=== PATIENT | male | born 1990 | race Two or more races ===

== ENCOUNTER 2019-03-06 20:45 | Inpatient (IN) | payer MEDICAID ==
[~2019-03-06] VITALS: Ht 177.8 cm; Wt 100.2 kg
--- NOTE | 2019-03-06 21:08 | NUR ---
DR. HARRIS AT BEDSIDE FOR [facility]
[2019-03-06] MEDS ORDERED: CLINDAMYCIN 900MG/D5W 100ML IVPB **ER PYXIS ONLY IJ ONE (21:29)
[2019-03-06 21:47] LABS: BASOPHILS % (AUTO) 0.6 % (0.0-2.0); EOSINOPHILS # (AUTO) 0.3 K/uL (0.0-0.7); EOSINOPHILS % (AUTO) 3.4 % (0.0-7.0); HEMATOCRIT 46.9 % (36.7-47.1); HEMOGLOBIN 15.9 g/dL (12.5-16.3); LYMPHOCYTES # (AUTO) 2.3 K/uL (20.0-40.0); LYMPHOCYTES % (AUTO) 27.7 % (20.5-51.5); MEAN CORPUSCULAR HEMOGLOBIN 30.3 uug (23.8-33.4); MEAN CORPUSCULAR HGB CONC 34 g/dL (32.5-36.3); MEAN CORPUSCULAR VOLUME 89.4 fL (73.0-96.2); MONOCYTES # (AUTO) 0.7 K/uL (2.0-10.0); NEUTROPHILS # (AUTO) 5.1 K/uL (1.8-8.9); NEUTROPHILS % (AUTO) 60.3 % (38.5-71.5); PLATELET COUNT (AUTO) 267 K/uL (152-348); RED BLOOD CELL COUNT(AUTO) 5.24 MIL/uL (4.06-5.63); WHITE BLOOD COUNT (AUTO) 8.5 K/uL (3.6-10.2)
[2019-03-06 21:54] LABS: CREATININE 1.2 mg/dL (0.6-1.3); POTASSIUM 3.8 mmol/L (3.5-5.1)
[2019-03-06 22:00] LABS: BILIRUBIN,TOTAL 0.5 mg/dL (0.2-1.0); TOTAL PROTEIN, SERUM 7.5 g/dL (6.4-8.2)
--- NOTE | 2019-03-06 22:00 | NUR ---
Dr. Grier spoke with Dr. Chavez for panel call. pt accepted for admission to [facility]. Dx: cellulitis
[2019-03-06] MEDS ORDERED: IV NORMAL SALINE 250 ML IV ONE (22:16)
[2019-03-06] MEDS ORDERED: IOHEXOL 300MG/ML 100 ML INFUS..BTL ONE (22:16)
[2019-03-06] MEDS ORDERED: SWABABLE VALVE TRANSFER SET EA MC ONE (22:16)
--- NOTE | 2019-03-06 22:19 | NUR ---
Report Given to Hari MODI at [facility]
--- NOTE | 2019-03-06 22:45 | NUR ---
pt taken to [facility] via [facility]. all belongings with pt.
[2019-03-06 22:55] VITALS: BP 137/77
--- NOTE | 2019-03-06 23:30 | NUR ---
Pt transported from ER via gurney to Room 307 at 2255. Admission process started at this time. All belongings accounted for, initial physical assessment done, patient is awake, alert and fully oriented. No other skin issues other than facial cellulitis on left cheek. Will document full assessment accordingly. No pain at this time. Able to walk to bathroom. Continent to bowel/bladder. Teaching regarding cellulitis done. Verbalized understanding. Dr Chavez with new telephone orders received from Charge Nurse, carried out by primary nurse. With order of clindamycin 600mg every 8 hours, last dose given at ER at 2135, will start next dose at 03/07 0535, requested supply form warehouse pricing and inventory clerk. Needs attended at this time, [facility]
[2019-03-06] MEDS ORDERED: CLINDAMYCIN PHOSPHATE 600 MG/4 ML VIAL ONE (23:40)
[2019-03-07] MEDS ORDERED: HYDROCODONE/APAP 5-325MG TABLET PO PRN (03:15)
[2019-03-07] MEDS ORDERED: ONDANSETRON 4 MG/2 ML VIAL IV PRN (03:15)
[2019-03-07 05:06] VITALS: BP 128/75
[2019-03-07] MEDS: CLINDAMYCIN PHOSPHATE IV 600 MG in IV DEXTROSE 5% 100 ML IV SCH ×3 (05:06→22:30)
[2019-03-07] MEDS ORDERED: CLINDAMYCIN PHOSPHATE IV 600 MG in IV DEXTROSE 5% 100 ML IV SCH (05:30)
[2019-03-07] MEDS: FAMOTIDINE 20 MG TABLET PO SCH (08:13)
[2019-03-07 11:00] VITALS: BP 103/57
--- NOTE | 2019-03-07 13:45 | NUR ---
WOUND CARE CONSULT: KUSH DONAHUEN Addendum: 03/07/19 at 1346 by SHAUN GREER RN Amended: Links added.
--- NOTE | 2019-03-07 13:46 | NUR ---
WOUND CARE CONSULT: PT PRESENTS WITH PUSTULE TO RT CHEEK WITH SURROUNDING ERYTHEMA, PRESENT ON ADMISSION. RECOMMENDATIONS MADE FOR WOUND CARE. DISCUSSED WITH NURSING STAFF. PT IS AMBULATORY AND CONTINENT. WILL SEE PRN. I.D. TO FOLLOW PT PER NURSING STAFF. Addendum: 03/07/19 at 1347 by SHAUN GREER RN Amended: Links added.
[2019-03-07] MEDS: NEOMY/BACITRAC/POLYMI OINT 28.35 GM TUBE TOP SCH (16:03)
[2019-03-07 16:12] VITALS: BP 139/74
[2019-03-07] MEDS: ACETAMINOPHEN 325 MG TABLET PO PRN (16:12)
--- NOTE | 2019-03-07 17:29 | NUR ---
Patient alert and oriented, ambulatory. No distress noted or complaints of pain. Continues on IV antibiotics for cellulitis. Erythema on right side of face, swelling decreased. Tender to palpation. All needs met, stable. Wound consult placed today, antibiotic ointment ordered, wound care per orders. Fever of 101.5 tylenol PRN given and cooling measures initiated, resolved.
--- NOTE | 2019-03-07 19:27 | NUR ---
Received patient awake and alert in bed, no signs of acute distress noted. Swelling noted to the right side of the face, patient is on antibiotics. No complaints of pain or SOB at this time. Patient is ambulatory. Safety measures initiated. Bed is low and locked, call light within reach. Will continue to monitor.
[2019-03-07 19:40] VITALS: BP 134/78
[2019-03-08] MEDS: ACETAMINOPHEN 325 MG TABLET PO PRN ×2 (04:05→20:34)
[2019-03-08 04:15] VITALS: BP 132/77
[2019-03-08] MEDS: CLINDAMYCIN PHOSPHATE IV 600 MG in IV DEXTROSE 5% 100 ML IV SCH (05:53)
--- NOTE | 2019-03-08 06:00 | NUR ---
Patient noted with temperature of 101.3, started cooling measures and administer Tylenol. Temperature is currently 98.4 Patient slept well throughout shift. no distress noted. no complaints of pain or SOB. Antibiotics given as ordered and tolerated well. Will endorse to next shift.
[2019-03-08 06:59] LABS: WHITE BLOOD COUNT (AUTO) 6.5 K/uL (3.6-10.2)
[2019-03-08 07:00] LABS: EOSINOPHILS % (AUTO) 0.7 % (0.0-7.0); HEMATOCRIT 46.2 % (36.7-47.1); HEMOGLOBIN 15.7 g/dL (12.5-16.3); LYMPHOCYTES % (AUTO) 15.9 % (20.5-51.5); MEAN CORPUSCULAR HEMOGLOBIN 30.9 uug (23.8-33.4); MEAN CORPUSCULAR HGB CONC 34 g/dL (32.5-36.3); MEAN CORPUSCULAR VOLUME 90.9 fL (73.0-96.2); MONOCYTES % (AUTO) 10.9 % (0.0-11.0); NEUTROPHILS % (AUTO) 72.1 % (38.5-71.5); PLATELET COUNT (AUTO) 223 K/uL (152-348); RED BLOOD CELL COUNT(AUTO) 5.08 MIL/uL (4.06-5.63)
[2019-03-08 07:01] LABS: BASOPHILS % (AUTO) 0.4 % (0.0-2.0); MONOCYTES # (AUTO) 0.7 K/uL (2.0-10.0); NEUTROPHILS # (AUTO) 4.7 K/uL (1.8-8.9)
--- NOTE | 2019-03-08 07:20 | NUR ---
RECEIVED PATIENT AWQAKE ALERT AND ORIENTED DENIES PAIN OR DISCOMFORTS AT THIS TIME HE IS AFEBRILE AT THIS TIME RIGHT SIDE OF FACE WITH CELLULITIS REMAIN INTACT WITH NO DRAINGE WITH TX ORDERED REMAIN ON IVF AND IV ATB WITH NO ADVERSE OR ALLERGIC REACTIONS AT THIS TIME CALL LIGHTS AND PERSONAL BELONGINGS ARE WITHIN EASY REACH WILL CONTINUE TO OBSERVE AND PROVIDE COMFORT.
[2019-03-08 07:27] LABS: CREATININE 1.1 mg/dL (0.6-1.3)
[2019-03-08 07:35] LABS: PHOSPHOROUS 3.6 mg/dL (2.5-4.9)
[2019-03-08] MEDS: NEOMY/BACITRAC/POLYMI OINT 28.35 GM TUBE TOP SCH (09:06)
[2019-03-08] MEDS: FAMOTIDINE 20 MG TABLET PO SCH (09:06)
--- NOTE | 2019-03-08 09:23 | NUR ---
PATIENT SEEN AND EXAMINED BY JAMES SANCHEZ AWARE THAT PATIENT HAD FEVER LAST NITE WITH NEW ORDERS AND NOTED.
[2019-03-08 11:24] VITALS: BP 122/68
--- NOTE | 2019-03-08 12:00 | NUR ---
PATIENT SEEN AND EXAMINED BY SHIELA PIZARRO ENERGY SCHEDULER WITH ORDERS SHE COLLECTED SPECIMEN FOR C/S AND SENT TO THE LAB FOR ANALYSIS PATIENT IS FOR CT SCAN OF THE FACE WITH CONTRAST PATIENT AWARE AND CONSCENT OBTAINED
[2019-03-08] MEDS ORDERED: SWABABLE VALVE TRANSFER SET EA MC ONE (12:15)
[2019-03-08] MEDS ORDERED: IV NORMAL SALINE 250 ML IV ONE (12:15)
[2019-03-08] MEDS ORDERED: IOHEXOL 300MG/ML 100 ML INFUS..BTL ONE (12:15)
--- NOTE | 2019-03-08 13:43 | NUR ---
CLINICAL PHARMACY NOTE: VANCOMYCIN PHARMACY TO DOSE Subjective: To start vancomycin in this 28 y/o male for indication of cellulitis of cheek Objective: BUN/SCr 12/1.1 wbc 6.5 temp 101.3 Assessment/Plan As renal function appears stable, will start regimen of vancomycin 1750mg q12hr for estimated trough of 15, first dose today at 1500. Will check trough before 4th scheduled dose (not ordered yet). Will also follow renal function and adjust if were to become unstable. Will follow
[2019-03-08] MEDS: PIPERACILLIN SODIUM/TAZOBACTAM 3.375 G in IV DEXTROSE 5% 50 ML IV SCH ×2 (13:47→22:23)
[2019-03-08] MEDS: MUPIROCIN 2% OINT 22 GM TUBE TP SCH ×2 (15:20→20:35)
[2019-03-08] MEDS: VANCOMYCIN IV 1,750 MG in IV DEXTROSE 5% 500 ML IV SCH (15:20)
[2019-03-08 16:00] VITALS: BP 122/67
[2019-03-08 19:55] VITALS: BP 139/86
--- NOTE | 2019-03-08 22:50 | NUR ---
1915 Received bedside report from AM nurse regarding patient. Pt is awake and fully oriented x 4. Able to verbalize needs, and denies pain or discomfort at this time. Still noted with redness and slight swelling on R cheek. Warm to touch, with elevated temperature throughout the day. Iv site is intact. Full assessment done, will document accordingly. 1999 VS checked by MARKETING EFFECTIVENESS MANAGER, Temp: 100.4 2030 Tylenol 650 mg given as ordered. Wound care also done as ordered, and tolerated well. 2199 Full assessment documented accordingly. No reactions noted from ATB given. 2249 Rechecked temperature at: 99.3. Cooling measures provided. Kept patient comfortable on light sheets. Attended all needs at this time. Will continue to monitor and follow plan of care.
[2019-03-09] MEDS: VANCOMYCIN IV 1,750 MG in IV DEXTROSE 5% 500 ML IV SCH ×2 (03:19→14:39)
[2019-03-09 05:04] VITALS: BP 119/70
[2019-03-09] MEDS: PIPERACILLIN SODIUM/TAZOBACTAM 3.375 G in IV DEXTROSE 5% 50 ML IV SCH ×3 (06:05→21:21)
[2019-03-09 06:40] LABS: CREATININE 1.2 mg/dL (0.6-1.3); POTASSIUM 3.7 mmol/L (3.5-5.1)
[2019-03-09 07:28] LABS: HEMATOCRIT 46.8 % (40-50); HEMOGLOBIN 15.6 G/DL (14.0-18.0); LYMPHOCYTES % (AUTO) 10.4 % (20.5-51.5); MEAN CORPUSCULAR HEMOGLOBIN 30.6 UUG (27.0-31.0); MEAN CORPUSCULAR HGB CONC 33 g/dL (32.0-37.0); MEAN CORPUSCULAR VOLUME 91.6 FL (82.0-92.0); MONOCYTES % (AUTO) 8.2 % (0.0-11.0); NEUTROPHILS % (AUTO) 79.4 % (38.5-71.5); PLATELET COUNT (AUTO) 200 K/UL (150-450); RED BLOOD CELL COUNT(AUTO) 5.11 MIL/UL (4.7-6.1); WHITE BLOOD COUNT (AUTO) 4.9 K/UL (4.0-11.2)
--- NOTE | 2019-03-09 07:28 | NUR ---
RECEIVED PATIENT IN BED AWAKE ALERT AND ORIENTED DENIES PAIN OR DISCOMFORTS AT THIS TIME REMAIN ON ATB ORDERED WITH NO ADVERSE OR ALLERGIC REACTIONS AT THIS TIME.RIGHT CHEEK CELLULITIS WITH REDNESS AND SWELLING WITH TREATMENT IN PROGRESS ORDERED CALL LIGHTS AND PERSONAL BELONGINGS ARE WITHIN EASY REACH WILL CONTINUE TO OBSERVE.
[2019-03-09 07:29] LABS: BASOPHILS % (AUTO) 0.3 % (0.0-2.0); EOSINOPHILS # (AUTO) 0.1 K/uL (0.0-0.7); EOSINOPHILS % (AUTO) 1.7 % (0.0-7.0); LYMPHOCYTES # (AUTO) 0.5 K/UL (0.8-4.8); MONOCYTES # (AUTO) 0.4 K/UL (0.1-1.30); NEUTROPHILS # (AUTO) 3.9 K/UL (1.8-8.9)
--- NOTE | 2019-03-09 07:51 | NUR ---
CLINICAL PHARMACY NOTE: VANCOMYCIN PHARMACY TO DOSE Subjective: To continue vancomycin in this 28 y/o male for indication of cellulitis of cheek Objective: BUN/SCr 9/1.2 wbc 4.9 temp 99 Assessment/Plan Will continue same regimen of vancomycin 1750mg IVPB q12hr for estimated trough of 17, 3rd dose today at 1500. Will check trough before 4th scheduled dose (ordered for 03/10 at 0230-RN has been informed to hold 0300 am dose if vanco trough level above 20 mcg/ml). Pharmacy shall review the level in am & adjust the fields if needed. Will follow
[2019-03-09] MEDS: FAMOTIDINE 20 MG TABLET PO SCH (08:48)
[2019-03-09] MEDS: MUPIROCIN 2% OINT 22 GM TUBE TP SCH ×2 (08:49→21:30)
--- NOTE | 2019-03-09 11:00 | NUR ---
PATIENT SEEN AND EXAMINED BY SHIELA PIZARRO WIND TURBINE SERVICE TECHNICIAN AND JAMES WIND TURBINE SERVICE TECHNICIAN WITH NO NEW ORDERS AT THIS TIME.
[2019-03-09 12:06] VITALS: BP 125/74
--- NOTE | 2019-03-09 14:00 | NUR ---
REMAIN ON ATB ORDERED WITH NO ADVERSE OR ALLERGIC REACTIONS AT THIS TIME LEFT AC HEPLOCK REMAINS INTACT FLUIDS ENCOURAGED WILL CONTINUE TO OBSERVE.
[2019-03-09 16:03] VITALS: BP 126/75
--- NOTE | 2019-03-09 18:06 | NUR ---
PATIENT IS RESTING DENIES PAIN OR DISCOMFORTS AT THIS TIME CONTINUE TO TOLERATE IV ANTIBIOTICS WITH NO ADVERSE OR ALLERGIC REACTIONS AT THIS TIME RIGHT CHEEK CELLULITIS STILL WITH ERYTHEMA WITH NO DRAINAGE AT THIS TIME WILL CONTINUE TO OBSERVE.
--- NOTE | 2019-03-09 19:34 | NUR ---
Received patient awake and alert in bed with family at bedside. No signs of distress noted. No complaints of pain or SOB. Heplock on the left AC is intact and patent. Patient is ambulatory with a steady gait. Safety measures initiated. Bed is low and locked, call light within reach. Will continue to monitor.
[2019-03-09 19:57] VITALS: BP 127/75
[2019-03-10] MEDS: VANCOMYCIN IV 1,750 MG in IV DEXTROSE 5% 500 ML IV SCH ×3 (03:14→21:02)
[2019-03-10 04:24] VITALS: BP 118/68
[2019-03-10] MEDS: PIPERACILLIN SODIUM/TAZOBACTAM 3.375 G in IV DEXTROSE 5% 50 ML IV SCH ×3 (06:34→23:28)
--- NOTE | 2019-03-10 07:07 | NUR ---
Patient slept well, no distress noted. No fevers over night. Antibiotics given as ordered and tolerated well. Safety measures given. Will endorse to next shift.
--- NOTE | 2019-03-10 07:19 | NUR ---
CLINICAL PHARMACY NOTE: VANCOMYCIN PHARMACY TO DOSE Subjective: To continue vancomycin in this 28 y/o male for indication of cellulitis of cheek Objective: BUN/SCr /1.2 (03/09) wbc 4.9 (03/09) temp 98.6 Vanco trough level on 03/10 at 0230: 9.1 Assessment/Plan Since vanco trough level is 9.1 mcg/ml, will change dose to vancomycin 1750mg IVPB q9hr for estimated trough of 15.6. 2nd dose today at 1200. Will check trough before 4th scheduled dose (ordered for 03/11 at 0530-RN has been informed to hold 0600 am dose if vanco trough level above 20 mcg/ml). Pharmacy shall review the level in am & adjust the fields if needed. Will follow
[2019-03-10] MEDS: FAMOTIDINE 20 MG TABLET PO SCH (09:46)
[2019-03-10] MEDS: MUPIROCIN 2% OINT 22 GM TUBE TP SCH ×2 (09:46→21:07)
[2019-03-10 11:40] VITALS: BP 124/67
[2019-03-10 15:51] VITALS: BP 125/71
--- NOTE | 2019-03-10 19:40 | NUR ---
Received patient awake and alert in bed, no signs of distress noted. IV antibiotics running on the right hand, no s/s of infection or infiltration noted. No complaints of pain or SOB. Safety measures initiated. Bed is low and locked, call light within reach. Will continue to monitor.
[2019-03-10 20:01] VITALS: BP 136/94
[2019-03-10] MEDS: CULTURELLE CAPSULE PO SCH (21:02)
[2019-03-11 04:00] VITALS: BP 120/63
[2019-03-11] MEDS: PIPERACILLIN SODIUM/TAZOBACTAM 3.375 G in IV DEXTROSE 5% 50 ML IV SCH ×2 (05:46→14:11)
[2019-03-11] MEDS: VANCOMYCIN IV 1,750 MG in IV DEXTROSE 5% 500 ML IV SCH ×2 (06:51→15:47)
--- NOTE | 2019-03-11 08:00 | NUR ---
RECEIVED PT RESTING IN BED. PT ALERT AND ORIENTED X3. PT DENIES PAIN AT THIS TIME. NO SIGNS OF ACUTE DISTRESS OR SOB NOTED. PT HAS WOUND ON RIGHT SIDE OF FACE. ABX RUNNING. BED LOCKED AND IN LOW POSITION. WILL CONTINUE TO MONITOR FOR SAFETY AND COMFORT.
[2019-03-11] MEDS: MUPIROCIN 2% OINT 22 GM TUBE TP SCH ×2 (08:53→21:38)
[2019-03-11] MEDS: FAMOTIDINE 20 MG TABLET PO SCH (08:53)
[2019-03-11] MEDS: CULTURELLE CAPSULE PO SCH ×2 (08:53→21:38)
--- NOTE | 2019-03-11 10:56 | NUR ---
CLINICAL PHARMACY NOTE: VANCOMYCIN PHARMACY TO DOSE Subjective: To continue vancomycin in this 28 y/o male for indication of cellulitis of cheek Objective: BUN/SCr 9/1.2 (03/09) wbc 4.9 (03/09) temp 97.7 Vanco trough level on 03/10 at 0230: 9.1 Vanco trough level on 03/11 at 0500:18.8(originally ordered at 0530 but drawn 30 min earlier) Assessment/Plan Since vanco trough level is within the range, will continue same dose(1750mg IV q9hrs)for now. Will monitor renal function and adjust the dose if needed . Will follow daily.
[2019-03-11 11:36] VITALS: BP 137/70
--- NOTE | 2019-03-11 12:00 | NUR ---
pt resting comfortably in bed. no acute distress or sob noted. pt denies pain at this time. will continue to monitor.
[2019-03-11 15:36] VITALS: BP 123/68
--- NOTE | 2019-03-11 16:00 | NUR ---
Dr Argueta contacted with wound sensitivity results. Shift report to be given to Katelyn MODI.
--- NOTE | 2019-03-11 18:31 | NUR ---
Endorsed patient from [facility], patient rested intermittently throughout rest of shift. Patient denies pain and discomfort. no acute distress noted. Safety measures provided. Will endorse to oncoming nurse.
--- NOTE | 2019-03-11 20:00 | NUR ---
Received bedside report from AM nurse regarding patient. Pt is awake and fully oriented x 4. Able to verbalize needs, and denies pain or discomfort at this time. Still noted with redness and slight swelling on R cheek. Warm to touch, but temperature at 98.6. Iv site is intact. Full assessment done, will document accordingly.
[2019-03-11 20:01] VITALS: BP 122/70
[2019-03-11] MEDS: MEROPENEM 1 G in IV NORMAL SALINE 100 ML IV SCH (21:38)
[2019-03-11] MEDS ORDERED: MEROPENEM 1 G in IV NORMAL SALINE 100 ML IV SCH (22:00)
[2019-03-12 05:59] VITALS: BP 112/69
[2019-03-12] MEDS: MEROPENEM 1 G in IV NORMAL SALINE 100 ML IV SCH ×2 (06:41→13:27)
--- NOTE | 2019-03-12 06:43 | NUR ---
No adverse events overnight. Patient received IV ATB with no reactions noted. Currently running Merrem at 33.33mL/hr on R hand. R hand slightly swollen, elevated. Flushing well, patient verbalized no pain when flushing. Wound order done as ordered last night. Photos taken per company policy. Will continue to monitor and endorse accordingly.
--- NOTE | 2019-03-12 07:45 | NUR ---
Received patient awake in bed. AAOx4. In no acute distress. IV intact and patent with Merrem running at this time. Redness on R cheek noted. Call light within reach. Safety measures implemented. Will continue to monitor.
[2019-03-12] MEDS: CULTURELLE CAPSULE PO SCH (08:31)
[2019-03-12] MEDS: FAMOTIDINE 20 MG TABLET PO SCH (08:31)
[2019-03-12] MEDS: MUPIROCIN 2% OINT 22 GM TUBE TP SCH (08:33)
[2019-03-12] MEDS ORDERED: LACT1CAP57 PO (11:47)
[2019-03-12] MEDS ORDERED: ERTA1VIA4 IV (11:51)
[2019-03-12] MEDS ORDERED: MUPI22OI2 TP (11:54)
[2019-03-12 12:09] VITALS: BP 127/73
--- NOTE | 2019-03-12 17:25 | NUR ---
Patient was given discharge instruction, midline intact due to home infusion of antibiotics for the next 7 days. Home health set up by case management. Patient had been given discharge instruction, prescription, and belongings. Patient picked up by family member to be driven home.
== END 2019-03-12 17:30 | disposition home health service (06) | DRG 383 ==
LOC: ER 20:48 → MEDSURG3 22:24
PROVIDERS: ADMIT Internal Medicine; ATTEND Nurse Practitioner Acute Care
PROC: 05HC33Z Insertion of Infusion Device into Left Basilic Vein, Percutaneous Approach (ICD-10-PCS; principal; 2019-03-12)
DX: L03.211 Cellulitis of face (principal); L02.01 Cutaneous abscess of face; B96.89 Other specified bacterial agents as the cause of diseases classified elsewhere
CPT/HCPCS: 36415; 70487; 83605; 83735; 84100; 85025; 87040; 87070; 87077; G0378; J2185; J2543; J3370; J3490; J7030; J7050; J7060; Q9967